=== PATIENT | male | born 1955 | race Caucasian/White ===

== ENCOUNTER 2024-10-01 08:22 | Observation (INO) ==
[2024-10-01 10:44] LABS: Rapid COVID-19 Molecular Undetected (Undetected)
[2024-10-01] MEDS ORDERED: ceFAZolin 2 GM PREMIX 2 GM/50 ML BAG ONE (10:45)
[2024-10-01] MEDS ORDERED: Famotidine IV 10 MG/ML 2 ml VIAL (20 mg) ONE (10:45)
[2024-10-01] MEDS ORDERED: Lidocaine 2% PF 5 ML VIAL ONE (10:55)
[2024-10-01] MEDS ORDERED: Midazolam 2 mg/2 ml VIAL 1 mg/ml 2 ml VIAL (2 mg) ONE (10:55)
[2024-10-01] MEDS ORDERED: Rocuronium 50 mg VIAL 10 mg/ml 5 ml VIAL (50 mg) ONE ×2 (10:55→14:41)
[2024-10-01] MEDS ORDERED: Propofol 10 MG/ML 20 ML BTL ONE (10:55)
[2024-10-01] MEDS ORDERED: fentaNYL 100 mcg/2 ml 50 MCG/ML VIAL ONE ×2 (10:55→16:23)
[2024-10-01] MEDS: Famotidine IV 10 MG/ML 2 ml VIAL (20 mg) IV ONE (11:21)
[2024-10-01] MEDS: Buffered Lidocaine 1% SYRIN 1 ml INTRADERM ONE (11:21)
[2024-10-01] MEDS: Lactated Ringers 1000 ml BAG 1,000 ML IV SCH ×2 (11:22→17:41)
[2024-10-01] MEDS ORDERED: Chlorhexidine MOUTHWASH 0.12% 15 ML UDC ONE (12:48)
[2024-10-01] MEDS ORDERED: ceFAZolin VIAL VIAL ONE (13:35)
[2024-10-01] MEDS ORDERED: Thrombin 5,000 UNITS(BOVINE) for Ultrasound Guided Pseudoaneursym ONE (13:35)
[2024-10-01] MEDS ORDERED: Lidocaine 1% w EPI 1:100,000 MDV 20 ML VIAL ONE (13:35)
[2024-10-01] MEDS ORDERED: Naloxone 0.4 mg VIAL 0.4 mg/ml 1 ml VIAL IV PRN (13:41)
[2024-10-01] MEDS ORDERED: Morphine 4 MG/ML VIAL (1 ml) IV PRN (13:41)
[2024-10-01] MEDS ORDERED: Prochlorperazine 5 mg/ml 2 ml VIAL (10 mg) IV PRN (13:41)
[2024-10-01] MEDS ORDERED: Sodium Chloride 0.9% 10 ML ONE (14:11)
[2024-10-01] MEDS ORDERED: Phenylephrine 40 mcg/mL 10mL (400mcg) SYRINGE ONE ×2 (14:12→14:38)
[2024-10-01] MEDS ORDERED: Morphine 10 MG/ML VIAL (1 ml) ONE (14:15)
[2024-10-01] MEDS ORDERED: Dexamethasone IV 4 MG/ML VIAL 1 ml VIAL ONE (14:43)
[2024-10-01] MEDS ORDERED: Ondansetron 4 mg VIAL 2 MG/ML 2 ml VIAL ONE (14:43)
[2024-10-01] MEDS ORDERED: Phenylephrine IV 10 MG/ML 1 ml VIAL ONE (14:59)
[2024-10-01] MEDS ORDERED: Senna TAB 8.6 mg TAB PO PRN (15:30)
[2024-10-01] MEDS ORDERED: Phenol 1.4% Throat Spray BTL MT PRN (15:30)
[2024-10-01] MEDS ORDERED: Dextran 70/Hypromellose Tears Eye Drops 15 ml BTL (for Artificials Tears) BOTH EYES PRN (15:30)
[2024-10-01] MEDS ORDERED: Calcium Carb (TUMS) 500 mg CHEW TAB PO PRN (15:30)
[2024-10-01] MEDS ORDERED: Ondansetron 4 mg VIAL 2 MG/ML 2 ml VIAL IV PRN (15:30)
[2024-10-01] MEDS ORDERED: Benzocaine/Menthol LOZ MT PRN (15:30)
[2024-10-01] MEDS ORDERED: Morphine 2 MG/ML SYRINGE IV PRN (15:30)
[2024-10-01] MEDS ORDERED: HYDROcodone/ACETAMIN 5/325 mg TAB PO PRN (15:30)
[2024-10-01] MEDS ORDERED: FLUOCINONIDE 0.05% TOPICAL PRN ×2 (15:34→18:37)
[2024-10-01] MEDS ORDERED: Albuterol HFA INHALER 8 gm MDI INH PRN (15:34)
[2024-10-01] MEDS: fentaNYL 100 mcg/2 ml 50 MCG/ML VIAL IV PRN (16:24)
[2024-10-01] MEDS: HYDROcodone/ACETAMIN 5/325 mg TAB PO PRN (22:24)
[2024-10-02 06:10] VITALS: BP 146/73
[2024-10-02] MEDS: Aspirin EC 81 mg TAB.EC (enteric coated) PO SCH (08:47)
[2024-10-02] MEDS: Cholecalciferol (VIT D3) 1,000 unit TAB PO SCH (08:47)
[2024-10-02] MEDS: Tiotropium Brom/Olodaterol MDI (ACUTE) INH SCH (09:00)
== END 2024-10-02 10:10 | disposition home or self-care (01) ==
LOC: OR 08:22 → SSU 08:22
PROVIDERS: ADMIT Neurological Surgery; ATTEND Neurological Surgery